=== PATIENT | male | born 1965 | race Caucasian/White ===

== ENCOUNTER → 2019-04-07 | Outpatient (CLI) | payer BC, OTHER ==
[~2019-04-07] VITALS: Ht 175.3 cm; Wt 131.5 kg
[~2019-04-07] MED LIST: ALLOPURINOL 10100 M2 PO; COLCRYS 0.6 MG0.6 MG PO; GLUCOPHAGE XR500 MG PO; INDOMETHACIN 2525 MG PO; LASIX 20 MG TAB20 MG; SIMVASTATIN10 MG PO; SYNTHROID125 MC1 PO; SYNTHROID175 MCG; XARELTO15 MG PO
[2019-04-07 12:12] VITALS: BP 135/74
--- NOTE | 2019-04-07 16:27 | NUR ---
PT RECEIVED FROM IR. PT AWAKE ALERT ORIENTED IN NAD. SBRADY ON MONITOR. VSS. DRESSING RT JUGULAR CLEAN DRY INTACT. NO SWELLING OR BLEEDING. HOB ELEVATED. PT DRINKS COLA AND EATING CRACKERS
== END | disposition home or self-care (01) ==
LOC: CATH 08:37
DX: I87.323 Chronic venous hypertension (idiopathic) with inflammation of bilateral lower extremity (principal); I87.1 Compression of vein; R22.43 Localized swelling, mass and lump, lower limb, bilateral; E78.00 Pure hypercholesterolemia, unspecified; E11.9 Type 2 diabetes mellitus without complications; F17.220 Nicotine dependence, chewing tobacco, uncomplicated; Z98.890 Other specified postprocedural states; Z79.01 Long term (current) use of anticoagulants; Z86.718 Personal history of other venous thrombosis and embolism; Z79.899 Other long term (current) drug therapy